=== PATIENT | female | born 1970 ===

== ENCOUNTER 2024-12-16 17:24 | Outpatient (CLI) | payer BC | END 2024-12-16 17:25 | disposition home or self-care (01) | LOC: MADRAD 17:24 | PROVIDERS: ATTEND Nurse Practitioner Family | DX: M54.2 Cervicalgia (principal); M47.812 Spondylosis without myelopathy or radiculopathy, cervical region; M50.31 Other cervical disc degeneration, high cervical region | CPT/HCPCS: 72050 ==